=== PATIENT | female | born 2005 | race Caucasian/White ===

== ENCOUNTER 2025-03-21 23:24 | Emergency (ER) | payer OTHER ==
--- OUTSIDE RECORDS SUMMARY | 2025-03-21 23:34 | XMS REPORT | Continuity of Care Document ---
Author Name Unknown Address [address] [facility] [address] [place] [address] Organization [facility] [place] Address [address] [facility] [address] [place] [address] Care Team Providers Care Assembly Leader Name Role Phone Pcp, Patient Does Not Have A Primary Care Physic gunnar Shanda Cortes MD Attending Clinician [phone] SHANDA CORTES Attending Clinician Unavailable SHANDA CORTES Attending Clinician Unavailable Julia Alegria DO Attending Clinician [phone] Drew Leary MD Attending Clinician + [phone] Mikael Talbert MD Attending Clinician [phone] MATTHIAS CACERES Attending Clinician Unavailable MATTHIAS CACERES Attending Clinician Unavailable Matthias Caceres MD Attending Clinician [phone] DREW LEARY Admitting Clinician Drew Garcia MD Admitting Clinician + [phone] Payers Payer Name Policy Type Policy Number Effective Date Expirati on Date Source COMMERCIAL NON-CONTRACT GENERIC [id number] 2023 00:00:00 Problems Condition Name Condition Details Condition Category Status Onset Date Resolution Date Last Treatment Date Treating Clinician Comments Source depression depression Disease Active 03-20 00:00: 00 [facility] Uses hormonal contracept cayetano patch as primary control method Uses hormonal contracept cayetano patch as primary control method Disease Active 03-20 00:00: 00 [facility] Full-term premature rupture of membranes with onset of labor within 24 hours of rupture Full-term premature rupture of membranes with onset of labor within 24 hours of rupture Disease Resolve d 2023-11 2-20 00:00: 00 2025-03-20 00:00:00 2025-03-20 10:37:00 [facility] Obesity (BMI 30-39.9) Obesity (BMI 30-39.9) Disease Resolve d 2023-11 2- 00:00: 00 2025-03-20 00:00:00 2025-03-20 10:37:02 [facility] 39 weeks gestation of 39 weeks gestation of Disease Resolve d 2023-11 00:00: 00 2025-03-20 00:00:00 2025-03-20 10:37:03 [facility] Liveborn infant, of [place] , born in hospital by vaginal delivery Liveborn , of [place] , born in hospital by vaginal delivery Disease Resolve d 2023-11 2 00:00: 00 2025-03-20 00:00:00 2025-03-20 10:37:04 [facility] Allergies, Adverse Reactions, Alerts Allergy Name Allergy Type Status Severity Reaction(s) Onset Date Inactive Date Treating Clinician Comments Source SHELLFIS H DERIVED DRUG INGREDI Active Anaphylaxis 2023-11 00:00: 00 [facility] Shellfis h Derived Propensi ty to adverse reaction s Active Anaphylaxis 2023-11 00:00: 00 [facility] Social History Social Habit Start Date Stop Date Quantity Comments Source [facility] History of tobacco use Passive smoker [facility] History of Social function 2025-03-20 00:00:00 2025-03-20 00:00:00 [facility] Alcoholic beverage intake 2025-03-20 00:00:00 2025-03-20 00:00:00 Current drinker of alcohol (finding) [facility] Alcohol Comment 2025-03-20 00:00:00 2025-03-20 00:00:00 occasional [facility] Tobacco use and exposure 2025-03-20 00:00:00 2025-03-20 00:00:00 Former smokeless tobacco user [facility] Tobacco Comment 2024-10-30 00:00:00 2024-10-30 00:00:00 Pt used vape prior to [facility] Sex assigned at 2005 00:00:00 2005 00:00:00 [facility] Smoking Status Start Date Stop Date Source Ex-smoker 2025-03-20 00:00:00 2025-03-20 00:00:00 [facility] Never [facility] tobacco [facility] Medications Ordered Medication Name Filled Medication Name Start Date Stop Date Current Medication? Ordering Clinician Indication Dosage Frequency Signature (SIG) Comments Components Source norelgestro min-ethinyl estradiol (XULANE) 150-35 mcg/24 hr patch 03-20 00:00: 00 Yes [id number] 1{patch } Apply 1 Patch to skin weekly. [facility] SERTraline (ZOLOFT) 25 mg tablet 03-20 00:00: 00 Yes [id number] 25mg Take 1 tablet by mouth in the morning. [facility] ketorolac (TORADOL) injection 30 mg 2023-11 21:00: 00 11-03 20:15 :00 No 30mg 30 mg, Slow IV Push, ONCE, 1 dose, On Sun11/03/24 at 1500, Routine [facility] NaCl 0.9% (NS) bolus infusion 1,000 mL 2023-11 21:00: 00 11-03 20:18 :00 No 1000mL at 999 mL/hr, 1,000 mL, IV Infusion, ONCE, 1 dose, On Sun11/03/24 at 1500, JUDE [facility] butalbital- acetaminoph en-caff (ESGIC) 50-325-40 mg tablet 1 tablet 2023-11 20:15: 00 11-03 20:16 :00 No 1{tbl} 1 tablet, Oral, ONCE, 1 dose, [facility]/03/24 [facility] 1415[facility] dip[facility] (BENADRYL) injection 25 mg 2023-11 20:15: 00 11-03 20:14 :00 No 25mg 25 mg, Slow IV Push, ONCE, 1 dose, On Sun11/03/24 at 1415, STAT [facility] metoclopram mikie HCl (REGLAN) injection 10 mg 2023-11 20:15: 00 11-03 20:15 :00 No 10mg 10 mg, Slow IV Push, ONCE, 1 dose, On Sun11/03/24 at 1415, [facility] acetaminoph en (TYLENOL) tablet 650 mg 2023-11 03:15: 00 11-03 03:25 :00 No 650mg 650 mg, Oral, ONCE, 1 dose, On 11/02/24 at 2115, [facility] NaCl 0.9% (NS) bolus infusion 1,000 mL 2023-11 02:30: 00 11-03 03:27 :00 No 1000mL at 999 mL/hr, 1,000 mL, IV Infusion, ONCE, 1 dose, On 11/02/24 at 2030, STAT [facility] vitamin w/FA tablet 2023-11 00:00: 00 03-20 00:00 :00 No [id number] 102 1{tbl} Take 1 tablet by mouth in the morning. [facility] docusate 100 mg capsule 2023-11 00:00: 00 03-20 00:00 :00 No [id number] 102 200mg Take 2 capsules by mouth once daily as needed for Constipati on. [facility] ferrous sulfate 325 mg (65 mg iron) tablet 2023-11 00:00: 00 03-20 00:00 :00 No [id number] 102 325mg Take 1 tablet by mouth in the morning. [facility] ibuprofen 800 mg tablet 2023-11 00:00: 00 03-20 00:00 :00 No [id number] 102 800mg Take 1 tablet by mouth every 8 (eight) hours as needed (pain). Take with food or milk. [facility] Vital Signs Vital Name Observation Time Observation Value Comments S kylee Systolic blood pressure 2025-03-20 15:26:00 104 mm[Hg] [facility] Diastolic blood pressure 2025-03-20 15:26:00 70 mm[Hg] [facility] Heart rate 2025-03-20 15:26:00 74 /min [facility] Body temperature 2025-03-20 15:26:00 36.72 Pavithra [facility] Respiratory rate 2025-03-20 15:26:00 18 /min [facility] Body height 2025-03-20 15:26:[address] [facility] Body weight 2025-03-20 15:26:00 62.914 kg [facility] BMI 2025-03-20 15:26:00 27.09 kg/m2 [facility] Oxygen saturation in Arterial blood by Pulse oximetry 2025-03-20 15:26:00 98 /min [facility] Systolic blood pressure 2024-11-04 00:30:00 126 mm[Hg] [facility] Diastolic blood pressure 2024-11-04 00:30:00 74 mm[Hg] [facility] Heart rate 2024-11-04 00:30:00 64 /min [facility] Oxygen saturation in Arterial blood by Pulse oximetry 2024-11-04 00:30:00 95 /min [facility] Body temperature 2024-11-03 19:52:00 36.67 Pavithra [facility] Respiratory rate 2024-11-03 19:52:00 18 /min [facility] Body height 2024-11-03 19:52:00 152.4 cm [facility] Body weight 2024-11-03 19:52:00 68.493 kg [facility] BMI 2024-11-03 19:52:00 29.49 kg/m2 [facility] Systolic blood pressure 2024-11-03 03:25:00 126 mm[Hg] [facility] Diastolic blood pressure 2024-11-03 03:25:00 85 mm[Hg] [facility] Heart rate 2024-11-03 03:25:00 62 /min [facility] Body temperature 2024-11-03 03:25:00 36.67 Pavithra [facility] Oxygen saturation in Arterial blood by Pulse oximetry 2024-11-03 03:25:00 98 /min [facility] Respiratory rate 2024-11-03 02:30:00 16 /min [facility] Body height 2024-11-03 01:50:00 152.4 cm [facility] Body weight 2024-11-03 01:50:00 68.72 kg [facility] BMI 2024-11-03 01:50:00 29.59 kg/m2 [facility] Procedures Procedure Date / Time Performed Performing Clinicia n Source POCT TEST 2025-03-20 15:45:00 Shanda Cortes [facility] EPIDURAL BLOOD PATCH 2024-11-03 23:00:00 Kailash Clinton [facility] Encounters Start Date/Time End Date/Time Encounter Type Admission Type Attending [facility] Care Department Encounter ID Source 2025-03-20 09:30:00 2025-03-20 11:26:33 Office Visit Shanda Cortes [facility] [id number] [facility] 2024-11-03 13:57:00 2024-11-03 19:15:00 Outpatient X SHANDA CORTES VIEN NDCELESTE COSMO [id number] [facility] 2024-11-03 13:57:00 2024-11-03 19:15:00 Emergency Julia Alegria, Shanda Ortega [facility] [id number] [facility] 2024-11-03 16:45:00 2024-11-03 17:14:00 Anesthesia Event Mikael Talbert [facility] [id number] [facility] 2024-11-02 19:52:00 2024-11-02 22:22:00 Emergency X MATTHIAS CACERES JULIO [facility] ERT [id number] [facility] 2024-11-02 19:52:00 2024-11-02 22:22:00 Emergency Matthias Caceres [facility] [id number] [facility] Results Test Description Test Time Test Comments Results Result Co mments Source [facility] [id number] 23:00:00 Abram Clinton CRNA ? ? 11/03/2024 ?5:24 PMEpidural Blood Patch Patient location during procedure: OBStart time: 11/03/2024 5:00 PMEnd time: 11/03/2024 5:14 PMReason for block: procedure for painStaffingPerformed: attending and GHOST WRITER Performed by: Abram Clinton CRNAAuthorized by: Mikael Talbert MD ?Preanesthetic ChecklistCompleted: patient identified, IV checked, site marked, risks and benefits discussed, surgical consent, monitors and equipment checked, pre-op evaluation and timeout performedEpiduralLoss of resistance technique: salineGuidance: landmark techniqueNeedleNeedle type: Tuohy Needle gauge: 19 GNeedle length: 9 cmNeedle insertion depth: 5 cmAssessmentProcedure assessment: patient tolerated procedure well with no immediate complicationsAdditional NotesAll procedures done with aseptic/sterile technique. Dr. Ricki talbert inserted epidural needle and Reji Clinton crna places IV for blood draw in the left AC. 23ml of blood drawn. 22mls given per dr talbert throughthe tuohy in increments ([id number]). [facility] Procedure Notes Date/Time Note Provider Source 2024-11-03 17:18:12 Associated Order(s): Epidural Blood Patch Epidural Blood Patch Patient location during procedure: OB Start time: 11/03/2024 5:00 PM End time: 11/03/2024 5:14 PM Reason for block: procedure for pain Staffing Performed: attending and GHOST WRITER Performed by: Abram Clinton CRNA Authorized by: Mikael Talbert MD Preanesthetic Checklist Completed: patient identified, IV checked, site marked, risks and benefits discussed, surgical consent, monitors and equipment checked, pre-op evaluation and timeout performed Epidural Loss of resistance technique: saline Guidance: landmark technique Needle Needle type: Tuohy Needle gauge: 19 G Needle length: 9 cm Needle insertion depth: 5 cm Assessment Procedure assessment: patient tolerated procedure well with no immediate complications Additional Notes All procedures done with aseptic/sterile technique. Dr. Ricki talbert inserted epidural needle and Reji Clinton crna places IV for blood draw in the left AC. 23ml of blood drawn. 22mls given per dr talbert through the tuohy in increments ([id number]). Patient is now headache free [facility] NACR-NURSE STEWARDESSES TEACHER,CERTIFIED REGISTERED NURSE STEWARDESSES TEACHER [facility] Notes Date/Time Note Provider Source 2024-11-06 09:05:25 Addendum created 11/06/24904 by Mikael Talbert MD Attestation recorded in Intraprocedure, Flowsheet accepted, Intraprocedure Attestations filed T CHANGER [facility] 2024-11-03 18:48:44 Patient: Shasta Zavala Procedure Summary Date: 11/03/24 Room / Location: Anesthesia Start: 1644 Anesthesia Stop: 1713 Procedure: EPIDURAL BLOOD PATCH Diagnosis: Scheduled Providers: Responsible Provider: Mikael Talbert MD Anesthesia Type: Epidural ASA Status: 2 Anesthesia Type: Epidural Last vitals BP 126/74 (11/03/241829) Temp Pulse 64 (11/03/241829) Resp SpO2 95 % (11/03/241829) There were no known notable events for this encounter. Anesthesia Post Evaluation Patient location during evaluation: bedside Patient participation: complete - patient participated Level of consciousness: awake and alert Pain score: 0 Pain management: satisfactory to patient Airway patency: patent Cardiovascular status: acceptable and blood pressure returned to baseline Respiratory status: acceptable Hydration status: acceptable Comments: Patient is s/p epidural blood patch with immediate headache relief. OK to discharge home. Instructed to come back for repeat blood patch if symptoms return. [facility] AN-ANESTHESIOLOGY ANESTHESIOLOGIST [facility] 2024-11-03 17:16:01 Name/ MRN / Age / Gender: Shasta Zavala, [id number] 19 year old female BMI: Estimated body mass index is 29.49 kg/m? as calculated from the following: Height as of this encounter: 1.524 m (5'). Weight as of this encounter: 68.5 kg (151 lb). Allergies: Shellfish derived Last Vitals: BP Readings from Last 1 Encounters: 11/03/24 122/84 Pulse Readings from Last 1 Encounters: 11/03/24 109 SpO2 Readings from Last 1 Encounters: 11/03/24 98% Date of Surgery: 11/03/2024 Surgeon: * No surgeons listed * Procedure: EPIDURAL BLOOD PATCH [facility] OUT OF OR - OR LOCATION Anesthesia Preop Eval (physical exam) Anesthesia Preop: [id number] NPO Status Verified Clear Liquids: > 2 Hours PONV Risk Factors: female Anesthesia History (-) Hx of anesthetic complications (+) Hx of PDPH Previous Anesthetics/Airways Cardiovascular Negative Cardiac ROS Pulmonary Negative Pulmonary ROS Neuro/Musculoskeletal (+) Headaches (+) Seizures (last seizure February, heat and stress bring them on, associated with "passing out". no medications) GI/Hepatic Negative GI/Hepatic ROS Hematology Comments: 10/31/24 00:29 HGB: 10.7 (L) HCT: 32.0 (L) MCV: 96.1 (H) MCH: 32.1 MCHC: 33.4 RDW-SD: 43.8 RDW-CV: 12.6 PLT x10 3 : 274 (L): Data is abnormally low (H): Data is abnormally high (+) Anemia Type and Screen Ordered: Yes Patient Accepts Blood Transfusion: Yes Renal Negative Renal ROS Skin Negative Skin ROS (+) Current IV access Endo/Other Negative Endo/Other ROS Other ROVER TENDER Negative ROVER TENDER ROS Pediatric Preoperative Medication Instructions Continue taking all prescribed medications except: TORSTEN inhibitors, ARBs, diuretics, all oral diabetes medications Anticoagulant Therapy: Defer to surgeons Insulin: Take 1/2 dose the night prior to surgery. Hold on DOS. Phentermine: Alert [facility] anesthesiologist SGLT2 Inhibitors: "gliflozins" to be held for 3 days prior to elective surgeries GLP1 Agonosit: stop 7 days prior to surgery MAC Cases: Continue taking TORSTEN inhibitors and ARBs ASA Classification ASA: 2 Labs: Chemistry - CBC 11/01/2024 - - - - 14.70 (H) 10.9 (L) 254 - - - 33.0 (L) eGFR: - Date: - ANC: 10.49 (H) Date: 11/01/2024 LFTs - Coags AST: - AP: - Prot: - Ca: - PT: - Date: - ALT: - T Noel: - Alb: - PTT: - Date: - PO4: - Date: - INR: - Date: - Cardiac Endocrine & other pBNP: - Date: - A1C: - Date: - Trop I: - Date: - POCT A1C: - Date: - CK: - Date: - TSH: - Date: - CKMB: - Date: - FT4: - Date: - LDL: - Date: - Lact: - Date: - Procal: - Date: - Respiratory -|-|-|-|- D-dimer: - ABG Date: - Date: - Miscellaneous Type and Screen: A Positive Antibody: Negative Date: 10/31/2024 POCT : - Date: - Current Medications: No outpatient medications have been marked as taking for the 11/03/24 encounter (Hospital Encounter). Previous Surgeries: History reviewed. No pertinent surgical history. Anesthesia Physical Exam General alert and oriented x 3 Neuro/Psych neurological Dental no notable dental hx Abdominal GI exam normal Airway Mallampati score:II TM distance:> 5 cm Neck ROM: full Mouth opening:normal Extremity Normal extremity Pulmonary pulmonary exam normal Other Cardiovascular cardiovascular exam normal Anesthesia Plan ASA Status: 2 Plan discussed during pre-op evaluation: Epidural Anesthetic plan on DOS: Epidural Anesthesia plan discussed with: patient or veterans employment representative Post-Operative Analgesia: routine analgesia & antiemetics Recovery Plan: observation Additional comments: Patient returned for post- epidural blood patch after failed conservative therapy. [facility] 2024-11-03 16:08:34 Coordinated with L&D special agent in charge for pt to go to L&D for blood patch. ANA Bell RN [facility] 2024-11-03 13:51:05 Patient states "I am leaking spinal fluid. I need a blood patch. I came yesterday, but the anesthesiologist was not here. Patient delivered on October 31." ANA Frausto RN [facility] 2024-11-03 13:45:00 [facility] Emergency Department Note Patient Name: Shasta Zavala Date of : 2005 19 year old female Treatment [facility] Primary Care Physician: PATIENT DOES NOT HAVE A PCP Patient Escorted by: Family [5] Mode of Arrival: Personal means [1] EMS Treatment Prior to ED Arrival: MECHANICAL TECHNOLOGIST treatment: Medication (comment) MECHANICAL TECHNOLOGIST treatment comments: tylenol Travel and Exposure Screening: Symptoms Does patient have any of these symptoms?: (not recorded) Exposure Screening Has patient had contact with someone with a communicable disease in the last month?: (not recorded) Diseases exposed to:: (not recorded) Is Patient ?: (not recorded) Exposure Date: (not recorded) Chief Complaint: Chief Complaint Patient presents with Headache History of Present Illness: The patient presents from home for evaluation for headache she has had since being discharged from the hospital on November 01 after having a baby. She reports she had an epidural during delivery. She was seen here yesterday and the recommendation was for conservative treatment. She reports she has tried caffeine as well as hydration at home but her headache is worsening despite that. No fevers or chills. She started vomiting about 20 minutes prior to arrival. She is allergic to shellfish. She is breast-feeding. Here for evaluation. Past Medical History/Immunizations: History reviewed. No pertinent past medical history. Tetanus received in last 5 years: Yes Allergies: Allergies Allergen Reactions Shellfish Derived Anaphylaxis Past Social History: Tobacco Use Never Passive Exposure: Past Smokeless Tobacco: Former user of smokeless tobacco. Comments: Pt used vape prior to Past Surgical History: History reviewed. No pertinent surgical history. Review of Systems: Review of Systems Constitutional: Negative for chills and fever. Eyes: Positive for photophobia. Respiratory: Negative for cough and shortness of breath. Cardiovascular: Negative for chest pain. Gastrointestinal: Positive for nausea and vomiting. Negative for abdominal pain. Genitourinary: Negative for dysuria. Musculoskeletal: Negative for arthralgias, neck pain and neck stiffness. Skin: Negative for wound. Neurological: Positive for headaches. Psychiatric/Behavioral: Negative for agitation. Endocrine: Negative for goiter. Physical Exam: ED Triage Vitals [11/03/24 1352] Weight 68.5 kg (151 lb) Actual or estimated Height 1.524 m (5') BP (!) 127/94 Pulse 82 Resp 18 Temp 36.7 ?C (98 ?F) Temp source Oral SpO2 100 % Measured on Room air Physical Exam Vitals and nursing note reviewed. Constitutional: Appearance: Normal appearance. She is normal weight. HENT: Head: Normocephalic and atraumatic. Cardiovascular: Rate and Rhythm: Normal rate and regular rhythm. Pulmonary: Effort: Pulmonary effort is normal. No respiratory distress. Abdominal: General: There is no distension. Palpations: Abdomen is soft. There is no mass. Tenderness: There is no abdominal tenderness. There is no guarding. Hernia: No hernia is present. Musculoskeletal: General: Normal range of motion. Cervical back: Normal range of motion and neck supple. No tenderness. Comments: No ecchymosis, bruising or tenderness to the lumbar area. Skin: General: Skin is warm. Neurological: General: No focal deficit present. Mental Status: She is alert. Radiology: No orders to display Lab Results: Lab Results - No data to display EKG: If EKG completed, see Procedure Note. Orders and Treatments: Orders Placed This Encounter Procedures Consult Anesthesiology Orders Placed This Encounter Medications NaCl 0.9% (NS) bolus infusion 1,000 mL metoclopramide HCl (REGLAN) injection 10 mg ketorolac (TORADOL) injection 30 mg diphenhydrAMINE (BENADRYL) injection 25 mg kqyofymehk-srxkdovkhfzct-d aff (ESGIC) 50-325-40 mg tablet 1 tablet First Provider Eval: ED Events Date/Time Event User Comments 11/03/24 1358 Medical Screening Begins JULIA ALEGRIA DO -- 11/03/24 1358 First Provider Evaluation JULIA ALEGRIA DO -- ED COURSE Diagnosis/Impression as of 11/03/24 1614 Acute nonintractable headache, unspecified headache type Procedures: Procedures MDM: Medical Decision Making The patient presents from home for evaluation for headache she has had since being discharged from the hospital on November 01 after having a baby. She reports she had an epidural during delivery. She was seen here yesterday and the recommendation was for conservative treatment. She reports she has tried caffeine as well as hydration at home but her headache is worsening despite that. No fevers or chills. She started vomiting about 20 minutes prior to arrival. She is allergic to shellfish. She is breast-feeding. Vital signs are stable in ER. There is no ecchymosis, bruising or tenderness to her lumbar spine. Her neck is supple and without meningismus. Will try pain medication as well as IV fluids and caffeine here in the ER. Will also consult anesthesia to discuss the possibility of a blood patch. Final disposition pending. 1530 -the patient is doing well here in the ER. Her headache is improving after the medications given above. She is pending evaluation by the anesthesia team regarding the possibility of a blood patch. 1615 - the patient is being sent to L&D for eval by the anesthesia team. She will be discharged from L&D later on. Problems Addressed: Acute nonintractable headache, unspecified headache type: acute illness or injury Risk Prescription drug management. Flowsheet Documentation: Scoring Tools: No data recorded Disposition/Condition: ED Disposition ED Disposition Triaged to L&D Condition -- Comment Pt will be discharged out of ER to L&D to have blood patch done with anesthesiologist. Discharge Medications: Patient's Medications START taking these medications No medications on file CONTINUE taking these medications which have NOT CHANGED DOCUSATE 100 MG CAPSULE Take 2 capsules by mouth once daily as needed for Constipation. FERROUS SULFATE 325 MG (65 MG IRON) TABLET Take 1 tablet by mouth in the morning. IBUPROFEN 800 MG TABLET Take 1 tablet by mouth every 8 (eight) hours as needed (pain). Take with food or milk. VITAMIN W/FA TABLET Take 1 tablet by mouth in the morning. START taking Modified Medications as Prescribed No medications on file STOP taking these medications No medications on file Follow-up: Electronically signed by: Julia Alegria DO 11/03/245 [facility] 2024-11-02 22:22:00 Pt given printed and verbal discharge instructions regarding headache after spinal tap, encouraged hydration, Pt verbalized understanding of instructions, pt awake alert oriented, resp reg unlabored, skin w/d, color appropriate for race, moves all ext well,pt encouraged to follow up with pcp Advised to seek medical attention for new/prolonged/worsening of symptoms No adverse reaction to meds given in ER noted upon discharge PIV d'cd, dressing to site, catheter in tact. Awake, alert oriented, resp reg unlabored, skin w/d, pt leaving amb with steady gait, in no apparent distress, [facility] Zackary Mejia RN [facility] 2024-11-02 19:48:41 Pt reports being discharged from [facility] from having her baby 24 hours ago. Pt reports a migraine that has been ongoing since 2100 last night. Pt reports having an epidural cath. Pt reports taking tylenol and caffeine without much relief. A&Ox4 Ambulatory. T CHANGER Cedric Degroot RN [facility]
[2025-03-22] MEDS ORDERED: NA CHLORIDE 0.9% 1,000 ML ONE (00:08)
[2025-03-22] MEDS ORDERED: DICYCLOMINE HCL 20 MG/2 ML AMP IM ONE (00:08)
[2025-03-22 00:30] LABS: Absolute Eosinophils 0.2 K/uL (0-0.5); Absolute Lymphocytes (CBC) 3.3 K/uL (0.7-4.9); Absolute Monocytes 0.8 K/uL (0.1-1.3); Absolute Neutrophil 5.4 K/uL (1.8-8.0); Basophils % 0.4 % (0-1.3); Eosinophils % 1.8 % (0-4.4); Hematocrit 37.6 % (36.0-45.0); Hemoglobin 12.9 g/dL (12.0-15.0); Lymphocytes % 33.8 % (15.3-44.8); MCH 31.4 pg (27.0-35.0); MCHC 34.4 g/dL (32.0-36.0); MCV 91.3 fL (80-100); MPV 8.2 fL (7.6-11.3); Monocytes % 8.6 % (3.3-12.3); Neutrophils % 55.4 % (41.7-73.7); Nucleated Red Blood Cells % 0.2 % (0-0); Platelets 352 thou/uL (152-406); RBC Red Blood Cell Count 4.12 M/uL (3.86-4.86); Red Cell Distribution Width 12.6 % (12.1-15.2)
[2025-03-22 00:47] LABS: Albumin 3.7 g/dL (3.4-5.0); Albumin/Globulin Ratio 0.9 (1.1-1.8); Anion Gap 7.5 mEq/L (5.0-15.0); Bilirubin Total 0.2 mg/dL (0.2-1.0); Potassium 3.5 mEq/L (3.5-5.1); Protein, Total 7.7 g/dL (6.4-8.2)
[2025-03-22 00:48] LABS: Specific Gravity > 1.030 (1.005-1.030); Urine Bacteria None Seen /HPF (<20); Urine Bilirubin NEGATIVE (Negative); Urine Blood Negative (Negative); Urine Clarity Clear (Clear); Urine Color Light-Yellow (Yellow); Urine Culture Reflex Order NOT NEEDED; Urine Glucose NEGATIVE (Negative); Urine Ketones NEGATIVE (Negative); Urine Microscopic Reflex YN ORDER UMIC; Urine Mucus Slight /HPF (None Seen); Urine Nitrite NEGATIVE (Negative); Urine Protein TRACE (Negative); Urine RBC <5 /HPF (None Seen); Urine Urobilinogen Normal (Normal); Urine WBC <5 /HPF (<5); Urine pH 6.5 (5.0-7.0)
[2025-03-22 00:52] LABS: Specific Gravity 1.033 (1.005-1.030)
--- NOTE | 2025-03-22 01:54 | RAD REPORT ---
CLINICAL HISTORY: Left upper abdominal pain. COMPARISON: None. TECHNIQUE: CT ABDOMEN PELVIS WITHOUT IV CONTRAST on 03/21/2025 11:58 PM CDT This exam was performed according to our departmental dose-optimization program, which includes autom ated exposure control, adjustment of the mA and/or kV according to patient size and/or use of iterative reconstruction technique. FINDINGS: Lower lungs are clear. Abdomen: The liver is normal in appearance. There is no biliary dilatation. Gallbladder is decompress ed. The pancreas and spleen are normal in appearance. The adrenal glands and kidneys are unremarkable. Abdominal aorta is normal in course and caliber without aneurysm. There is no free air. There is no r etroperitoneal adenopathy. Pelvis: There is no bowel obstruction. Urinary bladder is unremarkable. There is small amount of free pelvic fluid. Uterus is normal in size. Appendix is normal. Skeleton: There are no acute osseous findings. No suspicious bony lesions. IMPRESSION: No definite acute process. Electronically signed by: Deo Carrera MD 03/22/2025 01:49 AM CDT RP Due to temporary technical issues with the PACS/[employer] reporting system, reports are being domenic d by the in-house radiologist without review as a courtesy to ensure prompt reporting the interpreting radiologist is fully responsible for the content of the report. Transcribed Date/Time: 03/22/2025 1:54 AM
--- NOTE | 2025-03-22 02:11 | RAD REPORT ---
CLINICAL HISTORY: SOB. COMPARISON: None. TECHNIQUE: XR CHEST 1 VIEW 03/21/2025 11:58 PM CDT FINDINGS: Cardiac silhouette is normal in size. Lungs are clear without consolidation, atelectasis, mass or ziggy ma. There is no pleural effusion. There is no pneumothorax. There are no acute osseous findings. IMPRESSION: Clear lungs. Electronically signed by: Deo Carrera MD 03/22/2025 01:44 AM CDT RP Due to temporary technical issues with the PACS/[employer] reporting system, reports are being domenic d by the in-house radiologist without review as a courtesy to ensure prompt reporting the interpreting radiologist is fully responsible for the content of the report. Transcribed Date/Time: 03/22/2025 2:11 AM
[2025-03-22] MEDS ORDERED: KETOROLAC 30 MG/ML INJ ONE (02:33)
--- NOTE | 2025-03-22 02:49 | EDPHYS ---
Physician Documentation [facility] Name: Shasta Zavala Age: 19 yrs Sex: Female : 2005 Arrival Date: 03/21/2025 Time: 23:24 Bed 5 Private MD: ED Physician Austyn Obregon HPI: 03/22 00:00 This 19 yrs old Female presents to ER via Ambulatory with complaints of Flank Pain. cp 00:00 The patient complains of pain in the left upper flank. cp 00:00 Location: left mid back. Onset: The symptoms/episode began/occurred 1 hour(s) ago. cp Associated signs and symptoms: Pertinent negatives: diarrhea, dizziness, fever, hematuria, vomiting, chest pain. Severity of pain: in the emergency department the pain is unchanged despite home interventions. Historical: - Allergies: 03/21 23:56 No Known Allergies; ha1 - PMHx: 23:56 Seizure; ha1 - Immunization history:: Adult Immunizations up to date. - Infectious Disease History:: Denies. - Social history:: Smoking status: Patient denies any tobacco usage or history of. ROS: 03/22 00:05 Constitutional: Negative for body aches, chills, fever, poor PO intake, cp 00:05 Eyes: Negative for injury, pain, redness, and discharge, cp 00:05 ENT: Negative for drainage from ear(s), ear pain, sore throat, difficulty swallowing, difficulty handling secretions, 00:05 Cardiovascular: Negative for chest pain, edema, palpitations, 00:05 Respiratory: Negative for cough, shortness of breath, wheezing, 00:05 Abdomen/GI: Positive for abdominal pain, of the left upper quadrant, 00:05 Back: Positive for flank pain, on the left, 00:05 : Negative for urinary symptoms, 00:05 All other systems are negative, Exam: 00:10 Constitutional: The patient appears in no acute distress, alert, awake, cp non-diaphoretic, non-toxic, well developed, well nourished, 00:10 Head/Face: Normocephalic, atraumatic. cp 00:10 Eyes: Periorbital structures: appear normal, Conjunctiva: normal, no exudate, no injection, Sclera: no appreciated abnormality, Lids and lashes: appear normal, bilaterally, 00:10 ENT: External ear(s): are unremarkable, Nose: is normal, Mouth: Lips: moist, Oral mucosa: moist, Posterior pharynx: Airway: no evidence of obstruction, patent, 00:10 Chest/axilla: Inspection: normal, Palpation: crepitus, is not appreciated, tenderness, is not appreciated, 00:10 Cardiovascular: Rate: normal, Rhythm: regular, 00:10 Respiratory: the patient does not display signs of respiratory distress, Respirations: normal, no use of accessory muscles, no retractions, labored breathing, is not present, Breath sounds: are clear throughout, no decreased breath sounds, no stridor, no wheezing, 00:10 Abdomen/GI: Inspection: abdomen appears normal, Bowel sounds: active, all quadrants, Palpation: soft, in all quadrants, mild abdominal tenderness, in the left upper quadrant, rebound tenderness, is not appreciated, involuntary guarding, is not appreciated, 00:10 Back: pain, that is mild, of the left mid back, ROM is normal, Vital Signs: 03/21 23:46 BP 109 / 76; Pulse 85; Resp 18 S; Temp 98.3(O); Pulse Ox 99% on R/A; Weight 62.6 kg; ha1 Height 5 ft. 0 in. ; Pain 06/21; 03/22 00:45 BP 106 / 63; Pulse 84; Resp 17 S; Pulse Ox 100% on R/A; ha1 01:28 BP 107 / 64; Pulse 59; Resp 18 S; Pulse Ox 100% on R/A; ha1 02:30 BP 108 / 75; Pulse 64; Resp 18 S; Pulse Ox 100% on R/A; ha1 03/21 23:46 Body Mass Index 26.95 (62.60 kg, 152.4 cm) ha1 03/21 23:46 Pain Scale: Adult ha MDM: 03/21 23:46 Medical Screening Exam initiated cp 03/22 02:48 Data reviewed: vital signs, nurses notes, lab test result(s), radiologic studies, plain cp films, and as a result, I will discharge patient. 02:48 Differential diagnosis: nephrolithiasis, pyelonephritis, UTI, pancreatitis, pneumonia, cp pneumothorax. I considered the following discharge prescriptions or medication management in the emergency department Medications were administered in the Emergency Department. See MAR. Counseling: I had a detailed discussion with the patient and/or guardian regarding the historical points, exam findings, and any diagnostic results supporting the discharge/admit diagnosis, lab results, radiology results, to return to the emergency department if symptoms worsen or persist or if there are any questions or concerns that arise at home. Response to treatment: the patient's symptoms have markedly improved after treatment, and as a result, I will discharge patient. 03/21 23:58 Order name: CBC with Diff; Complete Time: 02:21 03/22 02:22 Interpretation: Reviewed. 03/21 23:58 Order name: CMP; Complete Time: 02:21 03/22 02:21 Interpretation: Normal except: CL 108; GLOB 4.0; A/G 0.9. 03/21 23:58 Order name: Lipase; Complete Time: 02:21 03/21 23:58 Order name: Test, Urine; Complete Time: 02:21 03/22 02:21 Interpretation: Normal except: Urine SG 1.033. 03/21 23:58 Order name: UA Rfx Soto Cult if indicated; Complete Time: 02:21 03/22 02:22 Interpretation: Normal except: Urine SG > 1.030; UPROT TRACE; UESTR 25. 03/21 23:58 Order name: XRAY Chest (1 view) 03/22 02:23 Interpretation: Report review. 03/21 23:58 Order name: CT Stone Protocol 03/22 02:23 Interpretation: Report reviewed. 03/21 23:58 Order name: IV Saline Lock; Complete Time: 00:16 03/21 23:58 Order name: Labs collected and sent; Complete Time: 00:16 Administered Medications: 00:15 Drug: Dicyclomine IM 20 mg IM once Route: IM; Site: right deltoid; ha1 00:45 Follow up: Response: No adverse reaction; Marked relief of symptoms ha1 00:16 Drug: NS 0.9% IV 1000 ml IV at 1 bolus Per protocol; to be given as a bolus over 60 ha1 minutes Route: IV; Rate: 1 bolus; Site: left antecubital; 02:48 Follow up: Response: No adverse reaction; IV Status: Completed infusion; IV Intake: ha1 1000ml 02:48 Drug: Ketorolac IVP 15 mg IVP once Route: IVP; Site: left antecubital; ha1 03:03 Follow up: Response: No adverse reaction; Pain is decreased ha1 Disposition Summary: 03/22/25 02:48 Discharge Ordered Notes: Location: Home cp Problem: new cp Symptoms: have improved cp Condition: Stable cp Diagnosis - Upper abdominal pain, unspecified cp - Dorsalgia, unspecified cp Followup: cp - With: Private Physician - When: 2 - 3 days - Reason: Worsening of condition Discharge Instructions: - Discharge Summary Sheet cp - Abdominal Pain, Adult cp - Acute Back Pain, Adult cp Forms: - Medication Reconciliation Form cp - Antibiotic Education cp - Prescription Opioid Use cp - Patient Portal Instructions cp - Leadership Thank You Letter cp Prescriptions: - Ibuprofen 800 mg Oral Tablet - take 1 tablet ORAL route every 8 hours As needed take with food; 30 tablet; cp Refills: 0, Product Selection Permitted Signatures: Dispatcher [employer] EDMS Austyn Suarez PA PA cp Ayala, Heidy RN RN ha1 Corrections: (The following items were deleted from the chart) 03/21 23:58 23:58 CBC+H.LAB.BRZ ordered. EDMS EDMS 23:58 23:58 COMPREHENSIVE METABOLIC PANEL+C.LAB.BRZ ordered. EDMS EDMS 23:58 23:58 LIPASE+C.LAB.BRZ ordered. EDMS EDMS 23:58 23:58 Test, Urine+UC.LAB.BRZ ordered. EDMS EDMS 23:58 23:58 UA Rfx Soto Cult if indicated+U.LAB.BRZ ordered. EDMS EDMS 23:58 23:58 Chest Single View+RAD.RAD.BRZ ordered. EDMS EDMS 23:58 23:58 Stone Protocol+CT.RAD.BRZ ordered. EDMS EDMS
--- NOTE | 2025-03-22 02:49 | ER ---
Nurse's Notes [facility] Name: Shasta Zavala Age: 19 yrs Sex: Female : 2005 Arrival Date: 03/21/2025 Time: 23:24 Bed 5 Private MD: Diagnosis: Upper abdominal pain, unspecified;Dorsalgia, unspecified Presentation: 03/21 23:46 Chief complaint: Patient states: SHARP LEFT UPPER QUADRANT PAIN THAT STARTED 45 MINUTES ha1 AGO. 23:46 Coronavirus screen: Client indicates they have traveled out of the [place] in the last 14 ha1 days. Ebola Screen: No symptoms or risks identified at this time. Initial Sepsis Screen: Does the patient meet any 2 criteria? No. Patient's initial sepsis screen is negative. Does the patient have a suspected source of infection? No. Patient's initial sepsis screen is negative. Risk Assessment: Do you want to hurt yourself or someone else? Patient reports no desire to harm self or others. Onset of symptoms was March 21, 2025. 23:46 Method Of Arrival: Ambulatory ha1 23:46 Acuity: LEAH 3 ha1 Triage Assessment: 23:56 General: Appears uncomfortable, Behavior is cooperative. Pain: Complains of pain in ha1 left upper quadrant Pain radiates to back Pain currently is 8 out of 10 on a pain scale. Quality of pain is described as sharp, throbbing, Pain began suddenly. Neuro: Level of Consciousness is awake, alert, obeys commands, Oriented to person, place, time, situation. Cardiovascular: Capillary refill < 3 seconds Patient's skin is warm and dry. Respiratory: Airway is patent Respiratory effort is even, unlabored, Respiratory pattern is regular, symmetrical. GI: Abdomen is round non-distended, Bowel sounds present X 4 quads. Reports upper abdominal pain. : No signs and/or symptoms were reported regarding the genitourinary system. Derm: Skin is pink, warm \T\ dry. Musculoskeletal: Circulation, motion, and sensation intact. Range of motion: intact in all extremities. Historical: - Allergies: 23:56 No Known Allergies; ha1 - PMHx: 23:56 Seizure; ha1 - Immunization history:: Adult Immunizations up to date. - Infectious Disease History:: Denies. - Social history:: Smoking status: Patient denies any tobacco usage or history of. Screenin:58 [facility] ED Fall Risk Assessment (Adult) History of falling in the last 3 months, ha1 including since admission No falls in past 3 months (0 pts) Confusion or Disorientation No (0 pts) Intoxicated or Sedated No (0 pts) Impaired Gait No (0 pts) Mobility Assist Device Used No (0 pt) Altered Elimination No (0 pt) Score/Fall Risk Level 0 - 2 = Low Risk Oriented to surroundings, Maintained a safe environment, Educated pt \T\ family on fall prevention, incl call for assistance when getting out of bed, Hourly rounding (assess needs \T\ fall precautionary measures) done. Abuse screen: Denies threats or abuse. Denies injuries from another. Nutritional screening: No deficits noted. Tuberculosis screening: No symptoms or risk factors identified. Assessment: 23:46 Reassessment: SEE TRIAGE ASSESSMENT. ha1 03/22 00:44 Reassessment: Patient and/or family updated on plan of care and expected duration. Pain ha1 level reassessed. Patient is alert, oriented x 3, equal unlabored respirations, skin warm/dry/pink. 01:28 Reassessment: Patient and/or family updated on plan of care and expected duration. Pain ha1 level reassessed. Patient is alert, oriented x 3, equal unlabored respirations, skin warm/dry/pink. PAIN 2/10 Patient states feeling better. Patient states symptoms have improved. 02:30 Reassessment: Patient and/or family updated on plan of care and expected duration. Pain ha1 level reassessed. Patient is alert, oriented x 3, equal unlabored respirations, skin warm/dry/pink. Patient states feeling better. Patient states symptoms have improved. 03:02 Reassessment: Patient and/or family updated on plan of care and expected duration. Pain ha1 level reassessed. Patient is alert, oriented x 3, equal unlabored respirations, skin warm/dry/pink. Vital Signs: 03/21 23:46 BP 109 / 76; Pulse 85; Resp 18 S; Temp 98.3(O); Pulse Ox 99% on R/A; Weight 62.6 kg; ha1 Height 5 ft. 0 in. ; Pain 8/10; 03/22 00:45 BP 106 / 63; Pulse 84; Resp 17 S; Pulse Ox 100% on R/A; ha1 01:28 BP 107 / 64; Pulse 59; Resp 18 S; Pulse Ox 100% on R/A; ha1 02:30 BP 108 / 75; Pulse 64; Resp 18 S; Pulse Ox 100% on R/A; ha1 03/21 23:46 Body Mass Index 26.95 (62.60 kg, 152.4 cm) ha1 03/21 23:46 Pain Scale: Adult ha1 ED Course: 03/21 23:28 Patient arrived in ED. mr 23:41 Austyn Suarez PA is PHCP. cp 23:41 Austyn Obregon MD is Attending Physician. cp 23:46 Patient has correct armband on for positive identification. Placed in gown. Bed in low ha1 position. Call light in reach. Side rails up X 1. Adult w/ patient. 23:46 Provided Education on: PLAN OF CARE . ha1 23:46 Arm band placed on right wrist. ha1 23:56 Triage completed. ha1 03/22 00:16 CBC with Diff Sent. ha1 00:16 CMP Sent. ha1 00:16 Lipase Sent. ha1 00:16 Test, Urine Sent. ha1 00:17 Inserted saline lock: 20 gauge in left antecubital area, using aseptic technique. Blood oe collected. Flushed with 10 mL NS. 00:18 UA Rfx Soto Cult if indicated Sent. oe 00:44 Sienna Nielsen, RN is Primary Nurse. ha1 00:49 XRAY Chest (1 view) In Process Unspecified. EDMS 01:11 CT Stone Protocol In Process Unspecified. EDMS 03:03 No provider procedures requiring assistance completed. IV discontinued, intact, ha1 bleeding controlled, No redness/swelling at site. Pressure dressing applied. Administered Medications: 00:15 Drug: Dicyclomine IM 20 mg IM once Route: IM; Site: right deltoid; ha1 00:45 Follow up: Response: No adverse reaction; Marked relief of symptoms ha1 00:16 Drug: NS 0.9% IV 1000 ml IV at 1 bolus Per protocol; to be given as a bolus over 60 ha1 minutes Route: IV; Rate: 1 bolus; Site: left antecubital; 02:48 Follow up: Response: No adverse reaction; IV Status: Completed infusion; IV Intake: ha1 1000ml 02:48 Drug: Ketorolac IVP 15 mg IVP once Route: IVP; Site: left antecubital; ha1 03:03 Follow up: Response: No adverse reaction; Pain is decreased ha1 Medication: 00:45 VIS not applicable for this client. ha1 Intake: 02:48 IV: 1000ml; Total: 1000ml. ha1 Outcome: 02:48 Discharge ordered by . owen 03:03 Discharged to home ambulatory, with family, ha1 03:03 Condition: stable 03:03 Discharge instructions given to patient, family, Instructed on discharge instructions, follow up and referral plans. medication usage, Demonstrated understanding of instructions, follow-up care, medications, Prescriptions given X 1, 03:04 Patient left the ED. ha1 Signatures: Dispatcher [employer] EDMS Ghazal Ramirez Reg Reg mr Page, Corey, PA PA Marcial Jorgensen Heidy, RN RN ha1
[2025-03-22 03:26] VITALS: TEMP 98.3
[2025-03-22 03:28] VITALS: BP 107/64; O2SAT 100
== END 2025-03-22 03:04 | disposition home or self-care (01) ==
LOC: ER 23:24
DX: R10.12 Left upper quadrant pain (principal); M54.9 Dorsalgia, unspecified
CPT/HCPCS: 96361; 85025; 81001; 36415; 81025; 83690; 80053; 76377; 74176; 71045; 96372; 96374; 99284; J0500; J7030

== ENCOUNTER 2025-08-11 10:49 | Emergency (ER) | payer OTHER ==
[2025-08-11 11:28] LABS: Sqamous Epithelial <5 /HPF (None Seen); Urine Culture Reflex Order NOT NEEDED; Urine Microscopic Reflex YN ORDER UMIC; Urine WBC Clump Rare /HPF (None Seen); Urine Yeast (Budding) Trace /HPF (None Seen)
--- NOTE | 2025-08-11 11:42 | ER ---
Nurse's Notes [facility] Name: Shasta Zavala Age: 20 yrs Sex: Female : 2005 Arrival Date: 08/11/2025 Time: 10:49 Bed 11 Private MD: Diagnosis: Vaginitis, vulvitis and vulvovaginitis in diseases classified elsewhere Presentation: 08/11 10:59 Chief complaint: Patient states: UTI X 3 days, was on abx 2 weeks ago and finished a iw week ago. Coronavirus screen: At this time, the client does not indicate any symptoms associated with coronavirus-19. Ebola Screen: No symptoms or risks identified at this time. Initial Sepsis Screen: Does the patient meet any 2 criteria? No. Patient's initial sepsis screen is negative. Does the patient have a suspected source of infection? No. Patient's initial sepsis screen is negative. Risk Assessment: Do you want to hurt yourself or someone else? Patient reports no desire to harm self or others. 10:59 Method Of Arrival: Ambulatory iw 10:59 Onset of symptoms was August 08, 2025. iw 10:59 Acuity: LEAH 4 iw Triage Assessment: 10:59 General: Appears in no apparent distress. Behavior is calm, cooperative. iw [employer] BASIC: 11:01 LMP 07/06/2025, unknown iw Historical: - Allergies: 11:01 No Known Allergies; iw - Home Meds: 11:01 None [Active]; iw - PMHx: 11:01 Seizure; iw - PSHx: 11:01 None; iw - Infectious Disease History:: Denies. Screenin:40 Abuse screen: Denies threats or abuse. Denies injuries from another. Nutritional ss screening: No deficits noted. Tuberculosis screening: Never had TB. 11:40 [facility] ED Fall Risk Assessment (Adult) History of falling in the last 3 months, iw including since admission No falls in past 3 months (0 pts) Confusion or Disorientation No (0 pts) Intoxicated or Sedated No (0 pts) Impaired Gait No (0 pts) Mobility Assist Device Used No (0 pt) Altered Elimination No (0 pt) Score/Fall Risk Level 0 - 2 = Low Risk Oriented to surroundings, Maintained a safe environment. Assessment: 11:00 General: Appears in no apparent distress. Behavior is calm, cooperative. Pain: Denies iw pain. Neuro: Level of Consciousness is awake, alert, obeys commands, Oriented to person, place, time, situation, Appropriate for age Moves all extremities. Full function. Cardiovascular: Patient's skin is warm and dry. Respiratory: Respiratory effort is even, unlabored, Respiratory pattern is regular, symmetrical. : Reports pain with urination. Derm: Skin is intact, is healthy with good turgor. Musculoskeletal: Range of motion: intact in all extremities. 11:40 Reassessment: Patient appears in no apparent distress at this time. Patient and/or ss family updated on plan of care and expected duration. Pain level reassessed. Patient is alert, oriented x 3, equal unlabored respirations, skin warm/dry/pink. awaiting disposition. Call light remains within reach. Vital Signs: 10:59 BP 125 / 81; Pulse 73; Resp 16; Pulse Ox 100% on R/A; Weight 63.05 kg; Height 5 ft. 0 iw in. ; 12:01 Resp 14; Temp 98(TE); Pulse Ox 100% on R/A; ss 10:59 Body Mass Index 27.15 (63.05 kg, 152.4 cm) iw ED Course: 10:53 Patient arrived in ED. al6 10:54 Isaias Negron DO is Attending Physician. ms3 11:01 Triage completed. iw 11:17 Test, Urine Sent. bc6 11:17 UA Rfx Soto Cult if indicated Sent. bc6 11:34 Adrianne Gallagher, RN is Primary Nurse. iw 11:40 No provider procedures requiring assistance completed. Patient did not have IV access ss during this emergency room visit. 11:40 Patient has correct armband on for positive identification. Bed in low position. Call ss light in reach. 11:42 Jose Monroe DO is Referral Physician. ms3 Administered Medications: 12:00 Drug: Fluconazole PO 150 mg PO once Route: PO; ss 12:00 Follow up: Response: Medication Administered at Departure ss Medication: 11:40 VIS not applicable for this client. ss Outcome: 11:42 Discharge ordered by . ms3 12:01 Discharged to home ambulatory, ss 12:01 Condition: good 12:01 Discharge instructions given to patient, Instructed on discharge instructions, follow up and referral plans. medication usage, Demonstrated understanding of instructions, follow-up care, medications, Prescriptions given X 1, 12:01 Patient left the ED. ss Signatures: Adrianne Gallagher RN RN iw Marina Whiting RN RN Isaias Negron DO DO ms3 RitchiesabineSubha bc6 Frances Watkins al6 Corrections: (The following items were deleted from the chart) 11:01 10:59 BP 125 / ???; Pulse 73bpm; Resp 16bpm; Pulse Ox 100% RA; 63.05 kg; Height 5 ft. 0 iw in.; BMI: 27.1; iw 13:49 10:55 General: Appears in no apparent distress. Behavior is calm, cooperative, iw iw
--- NOTE | 2025-08-11 11:42 | EDPHYS ---
Physician Documentation [facility] Name: Shasta Zavala Age: 20 yrs Sex: Female : 2005 Arrival Date: 08/11/2025 Time: 10:49 Bed 11 Private MD: ED Physician Isaias Negron HPI: 08/11 17:57 This 20 yrs old Female presents to ER via Ambulatory with complaints of Urinary Problem.ms3 17:57 20-year-old female with past medical history of seizures presents to the emergency ga3 department for urinary frequency, urgency, dysuria. Patient states she was diagnosed with urinary tract infection 2-1/2 weeks ago in the emergency department and prescribed antibiotics and her symptoms resolved. Patient states 3 days ago symptoms returned to include dysuria, frequency, urgency. Patient states her vaginal area continues to burn and itch.. 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 ROS: 17:57 Constitutional: Negative for fever, and chills. Cardiovascular: Negative for chest ms3 pain, and palpitations. Respiratory: Negative for shortness of breath, cough, wheezing, and pleuritic chest pain, 17:57 Abdomen/GI: Positive for 17:57 : Positive for burning with urination, difficulty urinating, vaginal itching, Exam: 17:57 Constitutional: This is a well developed, well nourished patient who is awake, alert, ms3 and in no acute distress. Cardiovascular: Regular rate and rhythm with a normal S1 and S2. No gallops, murmurs, or rubs. Normal PMI, no JVD. No pulse deficits. Respiratory: Lungs have equal breath sounds bilaterally, clear to auscultation and percussion. No rales, rhonchi or wheezes noted. No increased work of breathing, no retractions or nasal flaring. Abdomen/GI: Soft, non-tender, with normal bowel sounds. No distension or tympany. No guarding or rebound. No evidence of tenderness throughout. 17:57 : Patient deferred , Vital Signs: 10:59 BP 125 / 81; Pulse 73; Resp 16; Pulse Ox 100% on R/A; Weight 63.05 kg; Height 5 ft. 0 iw in. ; 12:01 Resp 14; Temp 98(TE); Pulse Ox 100% on R/A; ss 10:59 Body Mass Index 27.15 (63.05 kg, 152.4 cm) iw MDM: 11:02 Medical Screening Exam initiated ms3 17:57 Differential diagnosis: urinary tract infection, vaginosis. Data reviewed: vital signs, ms3 nurses notes, lab test result(s), and as a result, I will discharge patient. I considered the following discharge prescriptions or medication management in the emergency department Medications were administered in the Emergency Department. See MAR. Special discussion: I discussed with the patient/guardian in detail that at this point there is no indication for admission to the hospital. It is understood, however, that if the symptoms persist or worsen the patient needs to return immediately for re-evaluation. ED course: Discussed urinalysis results with patient. Budding yeast in urine. Patient deferred genitourinary exam. Patient with likely vaginal yeast infection due to budding yeast in urine and patient's history. Patient to follow-up with primary care physician in 2 to 3 days. All questions were answered. Return precautions were discussed include worsening symptoms, or any other concerns. Prescription given to be filled in 3 days if symptoms have not improved.. 08/11 10:54 Order name: UA Rfx Soto Cult if indicated; Complete Time: 11:29 ms3 08/11 10:55 Order name: Test, Urine; Complete Time: 11:29 ms3 Administered Medications: 12:00 Drug: Fluconazole PO 150 mg PO once Route: PO; ss 12:00 Follow up: Response: Medication Administered at Departure ss Disposition Summary: 08/11/25 11:42 Discharge Ordered Notes: Location: Home ms3 Condition: Stable ms3 Diagnosis - Vaginitis, vulvitis and vulvovaginitis in diseases classified elsewhere ms3 Followup: ms3 - With: Jose Monroe DO - When: 2 - 3 days - Reason: Recheck today's complaints Discharge Instructions: - Discharge Summary Sheet ms3 - Vaginal Yeast Infection, Adult ms3 Forms: - Medication Reconciliation Form ms3 - Antibiotic Education ms3 - Prescription Opioid Use ms3 - Patient Portal Instructions ms3 - Leadership Thank You Letter ms3 Prescriptions: - Diflucan 150 mg Oral tablet - take 1 tablet ORAL route one time for 1 day; 1 tablet; Refills: 0, Product ms3 Selection Permitted Signatures: Dispatcher [employer] Adrianne Dave, RN RN Marina Lares RN RN ss Isaias Negron, DO ms3 Corrections: (The following items were deleted from the chart) 10:55 10:54 UA Rfx Soto Cult if indicated+[email or web address] ordered. EDMS EDMS
[2025-08-11] MEDS ORDERED: FLUCONAZOLE 100 MG TAB ONE (11:48)
[2025-08-11 12:22] VITALS: BP 125/81; O2SAT 100
[2025-08-11 12:23] VITALS: TEMP 98
== END 2025-08-11 12:01 | disposition home or self-care (01) ==
LOC: ER 10:49
DX: N76.0 Acute vaginitis (principal); N76.2 Acute vulvitis
CPT/HCPCS: 81001; 81025; 99283